=== PATIENT | female | born 1940 | race Caucasian/White ===

== ENCOUNTER → 2020-06-15 | Outpatient (CLI) | payer MEDICARE ==
[~2020-06-15] MED LIST: ASCO500T9 PO; ASPI-963 PO; ASPI81TA45 PO; CHOL500045 PO; DIPH25CA26 PO; IBUP-1902 PO; LISI-167 PO; LISI-170 PO; METO25TA91 PO; MULT-516 PO; OMEP10SU2 PO; ROSU10TA2 PO; SPIR25TA PO; ZINC220C7 PO
== END | disposition home or self-care (01) ==
LOC: CVU 14:17
PROVIDERS: ATTEND Internal Medicine Cardiovascular Disease
DX: Z01.810 Encounter for preprocedural cardiovascular examination (principal); I08.1 Rheumatic disorders of both mitral and tricuspid valves; I11.9 Hypertensive heart disease without heart failure; R06.02 Shortness of breath; I65.29 Occlusion and stenosis of unspecified carotid artery
CPT/HCPCS: 93306